=== PATIENT | female | born 1985 | race Caucasian/White ===

== ENCOUNTER 2016-11-27 08:39 | Emergency (ER) | payer MEDICAID ==
[~2016-11-27] VITALS: Ht 170.2 cm; Wt 158.8 kg
[~2016-11-27 08:39] MED LIST: BACTRIM DS 8001 TAB PO; PERCOCET1 TAB PO; PHENERGAN 25MG.25 M1 PO; PHENERGAN 25MG.25 MG PR; PREDNISONE20 MG PO; PRILOSEC40 MG PO; ZANTAC150 MG PO
[2016-11-27] MEDS ORDERED: ZOFRAN ODT4 MG PO (09:05)
--- NOTE | 2016-11-27 09:16 | Emergency Room Report ---
History of Present Illness Time Seen by MD [id number] Presenting Problem in Triage Pt arrived:Walked Presenting Problem:PT REPORTS VOMITTING/DIARRHEA THAT BEGAN APPROX 0400 THIS MORNING. 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 N Clinical Suspician of Infection? N Mental Status: 1 - Regular (Normal Baseline) Sepsis Risk:Possible Sepsis Risk Have you (or family members/close friends) recently traveled outside the [place]? N If Yes, where/when: Have you had exposure to infectious disease within the past month? N TB? Other? Specify: Patient states starting last night she has had nausea vomiting and diarrhea and whole-body H she denies fevers or chills he denies abdominal pain headache or chest pain denies sore throat she states she has some lightheadedness she states she's not been able tolerate by mouth fluids. He complains of being thirsty. She is vomited just over 5 times and diarrhea over 5 times. Denies any urinary symptoms denies any sick contacts ALLERGIES Coded Allergies: aripiprazole (From ABILIFY) (Mild, 06/11/16) sumatriptan (From IMITREX) (Mild, 06/11/16) History Medical History General CAD? No Angina: No OK: No Hypertension? No Hyperlipidemia? No CHF? No DVT? No PE? No COPD? No Asthma? No Anemia? No GERD? No Gastric ulcers? No GI Bleed? No Hernia? No Thyroid Problems? Yes Hypothyroidism? Yes CVA? No Seizures? No Diabetes? No Renal Insuffiency? No End Stage Renal Disease? No UTI? No Stones? No BPH? No GB Disease: No Nephritic Syndrome? No Asplenia? No Hepatitis? No Sickle Cell Disease? No Arthritis? No Migraines? No Cataracts? No Glaucoma? No MRSA? No HIV? No TB? No Anxiety? Yes Depression? Yes Cancer? No More? No Immunization Hx DT/Tetanus Unknown Surgical Hx Previous Surgery?Y CYST REMOVAL FROM ABD GALLBLADDER CYST REMOVED BREAST CYST REMOVED FROM NECK TUB RIDER Hx LMP 2 Weeks Ago Social History Smoking Hx Smoker: Current Every Day Smoker Tobacco: Yes Type Cigarettes Packs/day < 1 Pack Alcohol Alcohol: No Review of Systems All Other Systems Reviewed and Negative Physical Exam Vital Signs Vital Signs Date Time Temp Pulse Resp B/P Pulse O2 O2 Flow FiO2 Ox Delivery Rate 11/27 1015 96 20 149/93 97 11/27 0846 97.9 113 20 157/94 97 General Appearance: Nontoxic morbidly obese Head: Normocephalic, without obvious abnormality, atraumatic. Eyes: conjunctiva/corneas clear ENT: Mucous membranes dry. Neck: No jugular venous distention. Cardiac: regular rate and rhythm Lungs: Clear to auscultation bilaterally Abdomen: Nontender, Nondistended, positive bowel sounds, no rebound : No CVA tenderness Extremities: no edema Musculoskeletal: No chest wall tenderness Skin: No rashes or lesions to exposed skin. Neurologic: Alert. No gross focal deficits Psychiatric: Normal affect (Julia APPLE, Ifeanyi) General Appearance normal appearance Respiratory Status No: respiratory distress. Cardiovascular no JVD Neurologic alert Medical Decision Making LABS/Meds/Orders Pt receiving controlled substance in ED? No Results/Orders Laboratory Tests 11/27/16 1025: Urine Color YELLOW, Urine Appearance SL CLOUDY, Urine pH 6.0, Ur Specific [place] 1.020, Urine Protein NEGATIVE, Urine Ketones NEGATIVE, Urine Blood TRACE -INTACT, Urine Nitrate NEGATIVE, Urine Bilirubin NEGATIVE, Urine Urobilinogen 0.2, Ur Leukocyte Esterase NEGATIVE, Urine RBC 3-5, Urine WBC OCC, Ur Squamous Epith Cells 5-10, Urine Bacteria 2+, Urine Mucus 1+, Urine Glucose NEGATIVE 11/27/16 0910: Sodium 138, Potassium 4.5, Chloride 107, Carbon Dioxide 25, BUN 16, Creatinine 0.7, Estimated Creat Clear 297 H, Estimated GFR (MDRD) 99, Glucose 103, Calcium 8.9, Total Bilirubin 0.3, AST 14 L, ALT 35, Alkaline Phosphatase 66, Total Protein 7.5, Albumin 3.4, Globulin 4.1 H, Albumin/Globulin Ratio 0.8 L, Amylase 43, Lipase 98, WBC 17.7 H, RBC 5.15, Hgb 14.9, Hct 45.6, MCV 88.5, RDW 13.7, Plt Count 271, MPV 5.9 L, Gran % 87.7 H, Gran # 15.5 H, Total Counted 100, Lymphocytes % 7.1 L, Monocytes % 3.7, Eosinophils % 1.3, Basophils % 0.2, Neutrophils 80 H, Lymphocytes (Manual) 12, Lymphocytes # 1.3, Monocytes (Manual ) 5, Monocytes # 0.7, Eosinophils # 0.2, Eosinophils # (Manual) 3, Basophils # 0.0, Platelet Estimate NORMAL, PUBS MCHC 32.4, MCH 28.6 11/27/16 0850: Influenza Type A Ag NOT DETECTED, Influenza Type B Ag NOT DETECTED Current Medication Orders Sig/Sd Start time Last Medication Dose Route Stop Time Status Admin Sodium Chloride 1,000 ML .STK-MED ONE 11/27 0904 DC IV Ondansetron HCl 0 .STK-MED ONE 11/27 0903 DC .ROUTE Ondansetron HCl 4 MG ONCE ONE 11/27 0900 DC 11/27 IV 11/27 0901 0907 Sodium Chloride 1,000 ML .Q1H1M 11/27 0900 DC 11/27 IV 11/27 1000 0907 Sodium Chloride 10 ML PRN PRN 11/27 0900 AC IV 11/28 0854 Orders Procedure Date/time Status DIFFERENTIAL-WBC 11/27 0910 Complete IV SALINE LOCK 11/27 0857 Active URINALYSIS/COMPLETE 11/27 0857 Complete URINE 11/27 0857 Complete LIPASE 11/27 0857 Complete COMPLETE METABOLIC PANEL 11/27 0857 Complete CBC WITH AUTO DIFF 11/27 0857 Complete AMYLASE 11/27 0857 Complete INFLUENZA A&B ANTIGENS 11/27 0851 Complete Complicating Factors Comment 1040pm repeat exam nontender nondistended I gave her precautions to return if any abdominal pain develops or any problems that it seems like a viral syndrome currently Departure Departure Disposition DC Home or Self Care(routine) Clinical Impression Primary Impression: Gastroenteritis Condition STABLE Referrals [facility] Patient Instructions DI for Viral Gastroenteritis -- Adult Additional Instructions return if worse Prescriptions Current Visit Scripts Ondansetron (Zofran 4MG Odt) 4 MG PO Q6HP PRN NAUSEA AND VOMITING #10 ODT ED Critical Care Critical Care No If Critical Care minutes are documented, the time involved in the performance of seperately reportable procedures was not counted toward critical care time documented. I directly delivered medical care to this critically ill and/or injured patient. Timely evaluation and treatment was necessary to address the significant organ system(s) dysfunction present in this patient. at 1049
[2016-11-27 09:20] LABS: LYMPH # 1.3 K/mm3 (0.7-4.5); LYMPH % 7.1 % (10-50.0)
[2016-11-27 09:22] LABS: HEMOGLOBIN 14.9 g/dL (12.2-16.2)
[2016-11-27 09:43] LABS: NEUTROPHILS 80 % (42-76)
[2016-11-27 10:36] LABS: URINE BILIRUBIN - DIPSTICK NEGATIVE (NEG); URINE BLOOD TRACE-INTACT (NEG)
[2016-11-27 10:56] VITALS: BP 149/93
[2016-12-03] MEDS ORDERED: BACTRIM DS 8001 TA1 PO (12:47)
== END 2016-11-27 10:57 | disposition home or self-care (01) ==
LOC: ER 08:39
PROVIDERS: Emergency Medicine
DX: K52.9 Noninfective gastroenteritis and colitis, unspecified (principal); E66.01 Morbid (severe) obesity due to excess calories; Z68.43 Body mass index [BMI] 50.0-59.9, adult; Z72.0 Tobacco use
CPT/HCPCS: J2405